=== PATIENT | female | born 1965 | race Two or more races ===

== ENCOUNTER 2025-02-05 13:17 | Emergency (ER) | payer OTHER ==
[~2025-02-05] VITALS: Ht 157.5 cm; Wt 70.3 kg
[2025-02-05] MEDS ORDERED: SINGULAIR10 MG PO (13:29)
[2025-02-05] MEDS ORDERED: AMBIEN10 MG PO (13:29)
[2025-02-05] MEDS ORDERED: SEROQUEL50 MG PO (13:29)
[2025-02-05 15:54] LABS: HEMATOCRIT 26.5 % (36.0-45.00); MEAN CELL VOLUME 77.6 fL (80.00-100.00); MEAN CORPUSCULAR HGB CONC 33.2 g/dl (32.0-36.0); PLATELET COUNT 364 K/uL (150-450); RED BLOOD COUNT 3.41 M/uL (4.00-6.00); RED CELL DISTRIBUTION WIDTH 15.8 % (11.5-14.5)
[2025-02-05 16:01] LABS: HEMOGLOBIN 8.8 g/dL (12.0-15.00); MEAN CORPUSCULAR HEMOGLOBIN 25.8 pg (27.00-32.0)
[2025-02-05 16:21] LABS: ALBUMIN 3.2 gm/dL (3.4-5.0); BILIRUBIN TOTAL 0.28 mg/dL (0.3-1.2); CALCIUM 9.1 mg/dL (8.5-10.1); CREATININE SERUM 1.14 mg/dL (0.55-1.02); GFR 48.45; GLOBULINA 3.7 G/DL (2.4-3.5); POTASSIUM 3.25 mEq/L (3.5-5.1); TOTAL PROTEIN 6.9 gm/dL (6.4-8.2)
== END 2025-02-05 20:22 | disposition home or self-care (01) ==
LOC: ER 13:17
DX: M54.50 Low back pain, unspecified (principal)

== ENCOUNTER 2025-02-09 22:20 | Emergency (ER) | payer OTHER ==
[~2025-02-09] VITALS: Ht 157.5 cm; Wt 68.0 kg
[~2025-02-09 22:20] MED LIST: AMBIEN10 MG PO; SEROQUEL50 MG PO; SINGULAIR10 MG PO
[2025-02-10] MEDS ORDERED: 0.9 % SODIUM CHLORIDE 1,000 ML IV STA (01:12)
[2025-02-10 01:58] LABS: HEMATOCRIT 26.1 % (36.0-45.00); MEAN CELL VOLUME 78.2 fL (80.00-100.00); MEAN CORPUSCULAR HGB CONC 32.9 g/dl (32.0-36.0); PLATELET COUNT 287 K/uL (150-450); RED BLOOD COUNT 3.33 M/uL (4.00-6.00); RED CELL DISTRIBUTION WIDTH 16.5 % (11.5-14.5)
[2025-02-10 02:00] LABS: HEMOGLOBIN 8.6 g/dL (12.0-15.00); MEAN CORPUSCULAR HEMOGLOBIN 25.8 pg (27.00-32.0)
[2025-02-10 02:05] LABS: BILIRUBIN TOTAL 0.23 mg/dL (0.3-1.2); CALCIUM 8.5 mg/dL (8.5-10.1); CREATININE SERUM 0.98 mg/dL (0.55-1.02); GFR 57.69; GLOBULINA 3.7 G/DL (2.4-3.5); POTASSIUM 3.72 mEq/L (3.5-5.1); TOTAL PROTEIN 6.7 gm/dL (6.4-8.2)
[2025-02-10 03:09] LABS: PH,URINE 6.5 (5.0-8.0); URINE APPEARANCE Clear; URINE BILIRRUBIN Negative (NEGATIVE); URINE BLOOD Negative; URINE COLOR Yellow; URINE GLUCOSE Negative (NEGATIVE); URINE KETONE Negative (NEGATIVE); URINE LEUKOCYTE Small; URINE NITRATE Negative; URINE PROTEIN Negative (NEGATIVE); URINE UROBILINOGEN 0.2 E.U./dl
[2025-02-10 03:10] LABS: URINE BACTERIA 237.3 uL (0.0-1933); URINE EPITHELIAL CELLS 15.3 uL (0.0-38.8); URINE RBC 10.6 uL (0.0-20.8); URINE WBC 8.7 uL (0.0-23.2)
[2025-02-10 03:13] LABS: URINE CAST 0.14 uL (0.0-1.40)
[2025-02-10 03:27] LABS: COCAINE NEGATIVE (NEGATIVE); METHADONE NEGATIVE (NEGATIVE); OPIATES NEGATIVE (NEGATIVE); THC ( Cannabinoids) NEGATIVE (NEGATIVE)
== END 2025-02-10 05:45 | disposition home or self-care (01) ==
LOC: ER 22:20
DX: G89.11 Acute pain due to trauma (principal); R51.9 Headache, unspecified
CPT/HCPCS: 36415; 70450; 71045; 72040; 93005; 96365; 96366; 99284; J7030

== ENCOUNTER 2025-04-13 23:01 | Emergency (ER) | payer OTHER ==
[~2025-04-13] VITALS: Ht 157.5 cm; Wt 72.6 kg
== END 2025-04-14 00:58 | disposition home or self-care (01) ==
LOC: ER 23:01
DX: S30.0XXA Contusion of lower back and pelvis, initial encounter (principal); W06.XXXA Fall from bed, initial encounter; Y93.89 Activity, other specified; Y92.013 Bedroom of single-family (private) house as the place of occurrence of the external cause; Z91.041 Radiographic dye allergy status